=== PATIENT | male | born 1955 | race Caucasian/White ===

== ENCOUNTER 2016-10-30 18:19 | Emergency (ER) | payer MEDICARE, MEDICAID ==
[2016-10-30 18:43] VITALS: BP 121/61
[2016-10-30] MEDS ORDERED: oxyCODONE/Acetamin 5/325 MG* TAB PO ONE (19:11)
--- NOTE | 2016-10-30 20:17 | RAD ---
INDICATION: Atraumatic RIGHT lower extremity pain. COMPARISON: No relevant prior exams available on the [facility] PACS for comparison. TECHNIQUE: Landaverde scale, color Doppler, and spectral analysis of the deep veins of the RIGHT lower extremity. Vessel compression, phasicity, and augmentation assessed. REPORT: The RIGHT common femoral, great saphenous, profunda femoral, femoral, popliteal, peroneal, and posterior tibial veins are patent. Patency of the LEFT common femoral vein documented. IMPRESSION: No evidence for RIGHT lower extremity deep venous thrombosis.
[2016-10-30 20:34] LABS: Hematocrit 45 % (42-52); Mean Corpuscular HGB Conc 33 g/dl (31-36); Mean Corpuscular Hemoglobin 31 pg (27-31); Mean Corpuscular Volume 93 fL (80-94); Mean Platelet Volume 10 um3 (7.4-10.4); Red Blood Count 4.81 10^6/ul (4.0-5.4); Red Cell Distribution Width 16 % (10.5-15); White Blood Count 10.6 10^3/ul (3.5-10.8)
[2016-10-30 20:51] LABS: BUN/Creatinine Ratio 29.9 (8-20); Calcium 9.1 mg/dL (8.6-10.3); EGFR African American 155.6 (>60); Potassium 3.8 mmol/L (3.5-5.0)
--- NOTE | 2016-11-04 12:03 | ED ---
Poncho Richards Alfonso, scribed for Matthew Light MD on 10/30/16 at 1910 . Lower Extremity - HPI Summary HPI Summary: This patient is a 61 year old M presenting to [facility] with a chief complaint of RLE pain since 5 days ago. The patient rates the pain 8/10 in severity. Symptoms aggravated by standing. Symptoms alleviated by nothing. Patient denies hip pain, buttock pain, urinary symptoms, and bowel symptoms. He denies any falls. PMHx includes chronic back pain and prostate cancer. - History of Current Complaint Chief Complaint: EDExtremityLower Stated Complaint: RT LEG PAIN Time Seen by Provider: 10/30/16 19:00 Hx Obtained From: Patient Onset of Pain: Prior to Arrival Onset/Duration: Still Present - 5 Severity Initially: Severe Severity Currently: Severe Pain Intensity: 8 Pain Scale Used: 0-10 Numeric Timing: Constant Location: Is Discrete @ - RLE Associated Signs And Symptoms: Positive: Other - denies hip pain, buttock pain, urinary symptoms, and bowel symptoms Aggravating Factor(s): Standing Alleviating Factor(s): Nothing - Allergies/Home Medications Allergies/Adverse Reactions: Allergies Allergy/AdvReac Type Severity Reaction Status Date / Time Azithromycin Allergy Severe throat Verified 03/25/15 08:27 closes Erythromycin Allergy Severe HIVES & Verified 03/25/15 08:27 PVCs Penicillins Allergy Severe THROAT Verified 03/25/15 08:27 STARTS TO CLOSE PMH/Surg Hx/FS Hx/Imm Hx Endocrine/Hematology History: Denies: Hx Diabetes Cardiovascular History: Reports: Hx Hypertension - ON MEDICATION FOR, Other Cardiovascular Problems/Disorders - IN THE PAST- STATES HAD PVC'S-PT THINKS RELATED TO AZITHROMYCIN Denies: Hx Congestive Heart Failure, Hx Pacemaker/ICD History: Reports: Other Problems/Disorders - possible abcess right scrotum prostrate ca Denies: Hx Renal Disease Musculoskeletal History: Reports: Hx Arthritis, Hx Back Problems, Other Musculoskeletal History - CHRONIC BACK PAIN Sensory History: Reports: Hx Contacts or Glasses - READING GLASSES Denies: Hx Hearing Aid Opthamlomology History: Reports: Hx Contacts or Glasses - READING GLASSES Neurological History: Reports: Hx Nerve Disease - NERVE PROBLEM IN LEGS, Other Neuro Impairments/Disorders - HX OF EXTREME CLOSTERPHOBIA Psychiatric History: Reports: Hx Anxiety - ROUTINE AND PRN MEDICATON FOR-PANIC AND ANXIETY ATTACKS ONCE SHIRA WHILE, Hx Depression, Hx Panic Disorder - Cancer History Cancer Type, Location and Year: prostate Hx Radiation Therapy: Yes - Surgical History Surgery Procedure, Year, and Place: DEBRIDEMENT OF TOE- Lt GREAT TOE - SOME BONE REMOVED-2009 [facility] [place]. CARDIAC CATH X2- NO STENTS [facility] [place]. COLONOSCOPY; Neck Surgery 09/20/[address] [facility]. Hx Anesthesia Reactions: No Infectious Disease History: No Infectious Disease History: Denies: Traveled Outside the [place] in Last 30 Days - Family History Known Family History: Positive: Cardiac Disease - Social History Alcohol Use: None Alcohol Amount: pt states he drank last night Substance Use Type: Reports: None, Prescribed Smoking Status (MU): Former Smoker Type: Cigarettes Amount Used/How Often: 1 PPD X 25 YEARS Have You Smoked in the Last Year: No Review of Systems Negative: Fever, Chills Negative: Erythema Negative: Sore Throat Negative: Chest Pain Negative: Shortness Of Breath, Cough Positive: Other - Negative bowel symptoms. Negative: Abdominal Pain, Diarrhea, Nausea Positive: no symptoms reported. Negative: dysuria, hematuria Positive: Other - RLE pain; negative hip pain, buttock pain Negative: Rash Neurological: Other - Negative dizziness All Other Systems Reviewed And Are Negative: Yes Physical Exam Triage Information Reviewed: Yes Vital Signs On Initial Exam: Initial Vitals Temp Pulse Resp BP Pulse Ox 98.2 F 50 16 121/61 96 10/30/16 18:37 10/30/16 18:37 10/30/16 18:37 10/30/16 18:37 10/30/16 18:37 Vital Signs Reviewed: Yes Appearance: Positive: Well-Appearing, No Pain Distress, Well-Nourished Skin: Positive: Warm, Dry Head/Face: Positive: Normal Head/Face Inspection Eyes: Positive: Conjunctiva Clear ENT: Positive: Normal ENT inspection Neck: Positive: Other: - Musculoskeletal ROM normal neck. (-) JVD, (-) Stridor, (-) Tracheal deviation Lymph: (-) Cervical adenopathy Respiratory/Lung Sounds: Positive: Other - Effort normal. (-) Respiratory distress, (-) Wheezes, (-) Rales Cardiovascular: Positive: Other - Rhythm regular, rate normal, Heart sounds normal; Intact distal pulses; The pedal pulses are 2+ and symmetric. Radial pulses are 2+ and symmetric. (-) Murmur Abdomen Description: Positive: Other: - Soft, (-) Tenderness, (-) Distension, (- ) Guarding, (-) Rebound Musculoskeletal: Positive: Other - Hyperalgesia. Tender to light touch all the way up and down entire right leg. Straight leg raise positive. No significant swelling.. Negative: Edema Left, Edema Right Neurological: Positive: Alert, Oriented to Person Place, Time Psychiatric: Positive: Affect/Mood Appropriate Diagnostics - Vital Signs Vital Signs Temp Pulse Resp BP Pulse Ox 10/30/16 18:37 98.2 F 50 16 121/61 96 - Laboratory Result Diagrams: 10/30/16 20:20 10/30/16 20:20 Lab Statement: Any lab studies that have been ordered have been reviewed, and results considered in the medical decision making process. - Additional Comments Diagnostic Additional Comments: Venous Doppler study reveals No evidence for RIGHT lower extremity deep venous thrombosis. ED physician has reviewed this radiology report and agrees. Re-Evaluation - Re-Evaluation First Eval Re-Evaluation Time: 22:24 Change: Improved Comment: He reports good relief of his pain. He ambulated well. Lower Extremity Course/Dx - Course Assessment/Plan: This patient is a 61 year old M presenting to [facility] with a chief complaint of RLE pain since 5 days ago. The patient rates the pain 8/10 in severity. Symptoms aggravated by standing. Symptoms alleviated by nothing. Patient denies hip pain, buttock pain, urinary symptoms, and bowel symptoms. He denies any falls. PMHx includes chronic back pain and prostate cancer. Venous Doppler study reveals No evidence for RIGHT lower extremity deep venous thrombosis. ED physician has reviewed this radiology report and agrees. Patient will be discharged with prescriptions follow up from PCP. The patient is agreeable with this plan. - Diagnoses Provider Diagnoses: Sciatica, Chronic back pain Discharge - Discharge Plan Condition: Stable Disposition: HOME Prescriptions: Naproxen TAB* [Naprosyn 250 mg TAB*] 500 mg PO Q8H PRN #15 tab PRN Reason: Pain - Moderate To Severe oxyCODONE/Acetamin 5/325 MG* [Percocet 5/325 TAB*] 1 tab PO Q6H PRN #12 tab MDD 4 PRN Reason: Pain - Moderate To Severe predniSONE TAB* [Deltasone TAB*] 50 mg PO DAILY #5 tab Patient Education Materials: Sciatica (ED) Referrals: Deanne Babb MD [Primary Care Provider] - 3 Days Additional Instructions: RETURN TO THE EMERGENCY DEPARTMENT FOR CHANGING OR WORSENING SYMPTOMS The documentation as recorded by the Poncho morrow Alfonso accurately reflects the service I personally performed and the decisions made by Nadege carter Jerry, MD.
== END 2016-10-30 23:23 | disposition home or self-care (01) ==
LOC: ED 18:19
DX: M54.30 Sciatica, unspecified side (principal); M54.9 Dorsalgia, unspecified; M79.604 Pain in right leg; Z85.46 Personal history of malignant neoplasm of prostate; Z86.79 Personal history of other diseases of the circulatory system; Z87.891 Personal history of nicotine dependence
CPT/HCPCS: 36415; 80048; 85027; 85610; 85730; 99282; A9270-GY

== ENCOUNTER 2017-01-21 12:16 | Emergency (ER) | payer MEDICARE, MEDICAID ==
[2017-01-21] MEDS ORDERED: NS 0.9% 1000 ML* 1,000 ML IV ONE (13:28)
[2017-01-21] MEDS ORDERED: Tetan/Diph/Pertus SYR(Tdap)* 0.5 ML SYR(BOOSTRIX) use SYR IM ONE (13:28)
[2017-01-21 13:47] LABS: Hematocrit 43 % (42-52); Hemoglobin 14.5 g/dl (14.0-18.0); Mean Corpuscular HGB Conc 34 g/dl (31-36); Mean Corpuscular Hemoglobin 31 pg (27-31); Mean Corpuscular Volume 93 fL (80-94); Mean Platelet Volume 9 um3 (7.4-10.4); Red Blood Count 4.64 10^6/ul (4.0-5.4); Red Cell Distribution Width 15 % (10.5-15); White Blood Count 14.2 10^3/ul (3.5-10.8)
[2017-01-21 14:02] LABS: ALT 12 U/L (7-52); AST 15 U/L (13-39); Albumin 3.6 g/dL (3.2-5.2); Alkaline Phosphatase 90 U/L (34-104); Anion Gap 5 mmol/L (2-11); BUN/Creatinine Ratio 35.6 (8-20); Blood Urea Nitrogen 26 mg/dL (6-24); CO2 Carbon Dioxide 28 mmol/L (22-32); Calcium 8.8 mg/dL (8.6-10.3); Chloride 103 mmol/L (101-111); Creatine Kinase 76 U/L (10-223); EGFR African American 140.5 (>60); EGFR Non-African American 109.2 (>60); Globulin 4.1 g/dL (2-4); Glucose 100 mg/dL (70-100); Magnesium 2.3 mg/dL (1.9-2.7); Potassium 4.1 mmol/L (3.5-5.0); Sodium 136 mmol/L (133-145); Total Protein 7.7 g/dL (6.4-8.9)
[2017-01-21 14:03] LABS: Troponin I 0.01 ng/mL (<0.04)
[2017-01-21] MEDS ORDERED: HYDROmorphone INJ* 2 MG/ML CARPUJECT SYRINGE IV SLOW PU ONE (14:04)
--- NOTE | 2017-01-21 14:07 | RAD ---
Indication: Headaches after fall. CT of the brain was performed without IV contrast. Ventricular structures are midline. No midline shift is noted. The extra-axial spaces are unremarkable. There is no evidence of intracranial mass or hemorrhage. No other high or low density lesions are identified. When compared to previous exam of February 22, 2015 there is no significant change. Bony calvaria, mastoid air cells and paranasal sinuses are unremarkable. IMPRESSION: There is no evidence of intracranial mass or hemorrhage.
--- NOTE | 2017-01-21 14:16 | RAD ---
INDICATION: Head and neck pain post fall. Previous neck surgery in 2014. COMPARISON: No relevant prior exams available on the [facility] PACS for comparison. TECHNIQUE: Multidetector CT images foramen magnum to lung apices without contrast. Multiplanar reformation. REPORT: Negative for facet subluxation at any level. Negative for cervical vertebral body or posterior element fracture. Negative for paravertebral hematoma. Postsurgical change of C3-C7 decompressive laminectomies. Multilevel degenerative spondylosis and facet joint osteoarthritis. Disc space narrowing is most prominent at C5-C6 and C6-C7 where it is moderately severe without change. Ankylosis at the RIGHT C2-C3 facet joints without change. At C2-C3 facet joint osteoarthritis results in slight bilateral foraminal stenosis with interval progression. At C3-C4 uncinate process spurring and facet joint osteoarthritis results in moderate RIGHT and moderately severe LEFT foraminal stenosis without significant change. At C4-C5 there is mild RIGHT and moderate LEFT foraminal stenosis without significant change. At C5-C6 there is moderate bilateral foraminal stenosis with mild progression. Negative for foraminal stenosis at C6-C7 or C7-T1. IMPRESSION: No traumatic injury of the cervical spine evident.
[2017-01-21 14:23] LABS: Alcohol < 10 mg/dL (<10)
[2017-01-21 14:38] LABS: TSH (Thyroid Stimulating Horm) 1.52 mcIU/mL (0.34-5.60)
--- NOTE | 2017-01-21 14:48 | RAD ---
Indication: Chest pain, fall and dizziness. Single frontal view of the chest performed at 1424 hours was reviewed. Comparison is made with previous exam dated April 11, 2013. No mediastinal shift is noted. Elevated right hemidiaphragm is noted. Lung bowers are clear. IMPRESSION: NO ACTIVE CARDIOPULMONARY DISEASE IS NOTED.
[2017-01-21 15:59] LABS: Urine Bilirubin Negative (Negative); Urine Glucose Negative (Negative); Urine Nitrite Negative (Negative)
[2017-01-21 16:06] VITALS: BP 121/77
--- NOTE | 2017-01-21 22:24 | ED ---
Catrachita Richards Nilda, scribed for Marilyn Joseph MD on 01/21/17 at 1336 . Adult Trauma - HPI Summary HPI Summary: This patient is a 62 year old M presenting to [facility] accompanied by female friend , Sayda, who drove pt to ED, with a chief complaint of dizziness and lightheadedness s/p fall since earlier today. Pt states his walker didnt have brakes on when he stood up, causing him to fall forward and hit his head on a dresser. 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 Pt notes that he was not dizzy before standing to use his walker. Patient reports LOC (per triage note), facial abrasions, left ear laceration, neck pain, and general chronic pain, but denies epistaxis, chest pain or SOB. The patient rates the pain 8/10 in severity. Pt states he did not take anything for pain SIDE STITCHER. He notes that he is allergic to penicillin (throat closes up). PMHx includes prostate cancer, sciatica on right side, and degenerative spondylosis. PSHx Spinal cord surgery with scar on posterior neck from cervical spine to top of thoracic spine. Pt asks for dilaudid by name for pain upon presentation. States he has taken opiates in the past, for years. - History of Current Complaint Chief Complaint: EDGeneral Stated Complaint: FALL,VARIOUS INJURIES,DIZZINESS Time Seen by Provider: 01/21/17 13:05 Hx Obtained From: Patient, Family/Epic Professional - friend (Sayda), Medical Records - triage note Mechanism of Injury: Fall Ambulatory at the Scene: No Loss of Consciousness: brief (seconds) Onset/Duration: Started Minutes Ago, Traumatic, Still Present Onset of Pain: Immediate Onset Severity: Severe Current Severity: Severe Pain Intensity: 8 Pain Scale Used: 0-10 Numeric Location: Head, Extremities, Other - face, nose Character: Aching Aggravating Factor(s): Movement Alleviating Factor(s): Rest Associated Signs & Symptoms: Positive: Other: - reports dizziness, lightheadedness, LOC (per triage note), facial abrasions, left ear laceration, neck pain, and general chronic pain, but denies epistaxis - Allergy/Home Medications Allergies/Adverse Reactions: Allergies Allergy/AdvReac Type Severity Reaction Status Date / Time Azithromycin Allergy Severe throat Verified 03/25/15 08:27 closes Erythromycin Allergy Severe HIVES & Verified 03/25/15 08:27 PVCs Penicillins Allergy Severe THROAT Verified 03/25/15 08:27 STARTS TO CLOSE Home Medications: Home Medications Atenolol TAB* [Tenormin TAB* 50 MG] 100 mg PO DAILY 01/21/17 [History Confirmed 01/21/17] Baclofen TAB* [Lioresal TAB*] 10 mg PO TID 01/21/17 [History Confirmed 01/21/17] Escitalopram (NF) [Lexapro 20 mg (NF)] 20 mg PO DAILY 01/21/17 [History Confirmed 01/21/17] Gabapentin CAP(*) [Neurontin 400 mg CAP(*)] 1,200 mg PO TID 01/21/17 [History Confirmed 01/21/17] PMH/Surg Hx/FS Hx/Imm Hx Previously Healthy: No Endocrine/Hematology History: Denies: Hx Diabetes Cardiovascular History: Reports: Hx Hypertension Denies: Hx Congestive Heart Failure, Hx Pacemaker/ICD History: Reports: Other Problems/Disorders - prostate CA Denies: Hx Renal Disease Musculoskeletal History: Reports: Hx Arthritis, Hx Back Problems, Other Musculoskeletal History - CHRONIC BACK PAIN, degenerative spondylosis, sciatica right side; neck surg Denies: Hx Rheumatoid Arthritis, Hx Osteoporosis Sensory History: Reports: Hx Contacts or Glasses - READING GLASSES Denies: Hx Hearing Aid Opthamlomology History: Reports: Hx Contacts or Glasses - READING GLASSES Neurological History: Reports: Hx Nerve Disease - neuropathy bilat legs, Other Neuro Impairments/Disorders - right hemiplegia Psychiatric History: Reports: Hx Anxiety - ROUTINE AND PRN MEDICATON FOR-PANIC AND ANXIETY ATTACKS ONCE IN A WHILE, Hx Depression, Hx Panic Disorder - Cancer History Cancer Type, Location and Year: prostate Hx Radiation Therapy: Yes - Surgical History Surgery Procedure, Year, and Place: DEBRIDEMENT OF TOE- Lt GREAT TOE - SOME BONE REMOVED-2009 [facility]. CARDIAC CATH X2- NO STENTS [facility]. COLONOSCOPY; Neck Surgery 09/20/[address] Bernstein at [facility]. Hx Anesthesia Reactions: No - Immunization History Date of Tetanus Vaccine: unknown Immunizations Up to Date: Unable to Obtain/Confirm Infectious Disease History: No Infectious Disease History: Denies: Traveled Outside the [place] in Last 30 Days - Family History Known Family History: Positive: Cardiac Disease - father, Diabetes - father, Other - dad- cancer - Social History Alcohol Use: None Substance Use Type: Reports: Prescribed - opiates Smoking Status (MU): Former Smoker Type: Cigarettes Amount Used/How Often: 1 PPD X 25 YEARS Have You Smoked in the Last Year: No Review of Systems Constitutional: Negative Eyes: Negative Positive: Other - left pinna laceration. Negative: Epistaxis Cardiovascular: Negative Respiratory: Negative Gastrointestinal: Negative Positive: Other - chronic back pain, neck pain Positive: Other - facial abrasions Neurological: Other - LOC, right hemiparesis, dizziness, and lightheadedness. Psychological: Normal All Other Systems Reviewed And Are Negative: Yes Physical Exam Triage Information Reviewed: Yes Vital Signs On Initial Exam: Initial Vitals Temp Pulse Resp BP Pulse Ox 98.3 F 60 20 115/67 96 01/21/17 12:21 01/21/17 12:21 01/21/17 12:21 01/21/17 12:21 01/21/17 12:21 Vital Signs Reviewed: Yes Appearance: Positive: Well-Appearing, Well-Nourished, Pain Distress - moderate, pt rated 8/10 in severity Skin: Positive: Warm, Skin Color Reflects Adequate Perfusion, Other - facial abrasions left frontal with hematoma, nasal, chin, laceartion to left pinna, superficail: cleansed, no sutures needed. Head/Face: Positive: Other - Hematoma and abrasion above left brow Eyes: Positive: EOMI, ASHLEY, Conjunctiva Clear ENT: Positive: Pharynx normal, TMs normal, Other - Superficial laceration of left pinna (cleaned by Dr. Joseph, no need for sutures), Abrasion of nose, Both nares clear, no bleeding site inside nares; nose without deformity Dental: Positive: Other - Edentulous Neck: Positive: Supple, No Lymphadenopathy, Tenderness @ - post spines Respiratory/Lung Sounds: Positive: Clear to Auscultation, Breath Sounds Present , Other - no respiratory distress Cardiovascular: Positive: RRR, Other - brisk capillary refill, pulses normal, S1 , S2. Negative: Murmur Abdomen Description: Positive: Nontender, No Organomegaly, Soft. Negative: Bruit, CVA Tenderness (R), CVA Tenderness (L), Distended, Guarding, Hernia @, Hepatomegaly, McBurney's Point Tenderness, Peritoneal Signs, Pulsatile Mass, Splenomegaly Musculoskeletal: Positive: Other - Right hemiparesis. Permanent nerve damage on right side. pt can't lift right arm and is weak at RLE.4/5 FROM of LLE. Abrasion on both knees. Spinal cord surgical site with scar on posterior neck from cervical spine to top of thoracic spine. Neurological: Positive: Alert, Oriented to Person Place, Time, Unable to Assess Gait, Facial Symmetry, Speech Normal, Other - Permanent nerve damage on right side per pt, +right hemiplegia Psychiatric: Positive: Normal - [place] Coma Scale Best Eye Response: 4 - Spontaneous Best Motor Response: 6 - Obeys Commands Best Verbal Response: 5 - Oriented [place] Coma Scale Comments: 15 Diagnostics - Vital Signs Vital Signs Temp Pulse Resp BP Pulse Ox 01/21/17 12:21 98.3 F 60 20 115/67 96 - Laboratory Lab Results: Lab Results 01/21/17 01/21/17 01/21/17 Range/Units 13:35 13:35 13:35 WBC 14.2 H (3.5-10.8) 10^3/ul RBC 4.64 (4.0-5.4) 10^6/ul Hgb 14.5 (14.0-18.0) g/dl Hct 43 (42-52) % MCV 93 (80-94) fL MCH 31 (27-31) pg MCHC 34 (31-36) g/dl RDW 15 (10.5-15) % Plt Count 237 (150-450) 10^3/ul MPV 9 (7.4-10.4) um3 Neut % (Auto) 73.1 (38-83) % Lymph % (Auto) 17.1 L (25-47) % Gregg % (Auto) 7.8 (1-9) % Eos % (Auto) 1.6 (0-6) % Baso % (Auto) 0.4 (0-2) % Absolute Neuts (auto) 10.4 H (1.5-7.7) 10^3/ul Absolute Lymphs (auto) 2.4 (1.0-4.8) 10^3/ul Absolute Monos (auto) 1.1 H (0-0.8) 10^3/ul Absolute Eos (auto) 0.2 (0-0.6) 10^3/ul Absolute Basos (auto) 0.1 (0-0.2) 10^3/ul Absolute Nucleated RBC 0 10^3/ul Nucleated RBC % 0 INR (Anticoag Therapy) (0.89-1.11) Sodium 136 (133-145) mmol/L Potassium 4.1 (3.5-5.0) mmol/L Chloride 103 (101-111) mmol/L Carbon Dioxide 28 (22-32) mmol/L Anion Gap 5 (2-11) mmol/L BUN 26 H (6-24) mg/dL Creatinine 0.73 (0.67-1.17) mg/dL Est GFR ( Amer) 140.5 (>60) Est GFR (Non-Af Amer) 109.2 (>60) BUN/Creatinine Ratio 35.6 H (8-20) Glucose 100 (70-100) mg/dL Lactic Acid 1.2 (0.5-2.0) mmol/L Calcium 8.8 (8.6-10.3) mg/dL Magnesium 2.3 (1.9-2.7) mg/dL Total Bilirubin 0.30 (0.2-1.0) mg/dL AST 15 (13-39) U/L ALT 12 (7-52) U/L Alkaline Phosphatase 90 (34-104) U/L Total Creatine Kinase 76 (10-223) U/L Troponin I 0.01 (<0.04) ng/mL B-Natriuretic Peptide ( - 100) pg/mL Total Protein 7.7 (6.4-8.9) g/dL Albumin 3.6 (3.2-5.2) g/dL Globulin 4.1 H (2-4) g/dL Albumin/Globulin Ratio 0.9 L (1-3) TSH 1.52 (0.34-5.60) mcIU/mL Urine Color Urine Appearance Urine pH (5-9) Ur Specific [place] (1.010-1.030) Urine Protein (Negative) Urine Ketones (Negative) Urine Blood (Negative) Urine Nitrate (Negative) Urine Bilirubin (Negative) Urine Urobilinogen (Negative) Ur Leukocyte Esterase (Negative) Urine Glucose (Negative) Serum Alcohol < 10 (<10) mg/dL 01/21/17 01/21/17 01/21/17 Range/Units 13:35 13:35 15:04 WBC (3.5-10.8) 10^3/ul RBC (4.0-5.4) 10^6/ul Hgb (14.0-18.0) g/dl Hct (42-52) % MCV (80-94) fL MCH (27-31) pg MCHC (31-36) g/dl RDW (10.5-15) % Plt Count (150-450) 10^3/ul MPV (7.4-10.4) um3 Neut % (Auto) (38-83) % Lymph % (Auto) (25-47) % Gregg % (Auto) (1-9) % Eos % (Auto) (0-6) % Baso % (Auto) (0-2) % Absolute Neuts (auto) (1.5-7.7) 10^3/ul Absolute Lymphs (auto) (1.0-4.8) 10^3/ul Absolute Monos (auto) (0-0.8) 10^3/ul Absolute Eos (auto) (0-0.6) 10^3/ul Absolute Basos (auto) (0-0.2) 10^3/ul Absolute Nucleated RBC 10^3/ul Nucleated RBC % INR (Anticoag Therapy) 0.98 (0.89-1.11) Sodium (133-145) mmol/L Potassium (3.5-5.0) mmol/L Chloride (101-111) mmol/L Carbon Dioxide (22-32) mmol/L Anion Gap (2-11) mmol/L BUN (6-24) mg/dL Creatinine (0.67-1.17) mg/dL Est GFR ( Amer) (>60) Est GFR (Non-Af Amer) (>60) BUN/Creatinine Ratio (8-20) Glucose (70-100) mg/dL Lactic Acid (0.5-2.0) mmol/L Calcium (8.6-10.3) mg/dL Magnesium (1.9-2.7) mg/dL Total Bilirubin (0.2-1.0) mg/dL AST (13-39) U/L ALT (7-52) U/L Alkaline Phosphatase (34-104) U/L Total Creatine Kinase (10-223) U/L Troponin I (<0.04) ng/mL B-Natriuretic Peptide 79 ( - 100) pg/mL Total Protein (6.4-8.9) g/dL Albumin (3.2-5.2) g/dL Globulin (2-4) g/dL Albumin/Globulin Ratio (1-3) TSH (0.34-5.60) mcIU/mL Urine Color Yellow Urine Appearance Clear Urine pH 5.0 (5-9) Ur Specific [place] 1.024 (1.010-1.030) Urine Protein Negative (Negative) Urine Ketones Negative (Negative) Urine Blood Negative (Negative) Urine Nitrate Negative (Negative) Urine Bilirubin Negative (Negative) Urine Urobilinogen Negative (Negative) Ur Leukocyte Esterase Negative (Negative) Urine Glucose Negative (Negative) Serum Alcohol (<10) mg/dL Result Diagrams: 01/21/17 13:35 01/21/17 13:35 Lab Statement: Any lab studies that have been ordered have been reviewed, and results considered in the medical decision making process. - Radiology CXR Radiology Interpretation Completed By: Radiologist - CXR reveals no active cardiopulmonary disease noted. ED physician has reviewed this radiology report and agrees. - CT C-Spine CT Interpretation Completed By: Radiologist - no traumatic injury of the c- spine evident. ED Physician has reviewed this report and agrees. Brain CT Interpretation Completed By: Radiologist - reveals no evidence of intracranial mass or hemorrhage. ED Physician reviewed this report and agrees. - EKG 1356 Cardiac Rate: Bradycardia EKG Rhythm: Sinus Bradycardia - 57 bpm EKG Interpretation: nl TN, QRS prolongued, LBBB, nl QTc, neg axis (-30), no acute changes EKG Comparison: Other - Compared to 02/22/15 EKG, pt now has LBBB. Re-Evaluation - Re-Evaluation First Eval Re-Evaluation Time: 16:20 Change: Improved Comment: Pt is not dizzy and feels safe to go home. Requests a few pain medications to take home as a prescription. Istop consulted Adult Trauma Course/Dx - Course Assessment/Plan: This patient is a 62 year old M with a chief complaint of dizziness and lightheadedness s/p fall since earlier today. Pt states his walker didnt have brakes on when he stood up, causing him to fall forward and hit his head on a dresser. Medications and allergies reviewed this visit. Tetanus status updated with Tdap. An EKG reveals sinus iris, 57 bpm, nl TN, QRS prolongued, LBBB, nl QTc, neg axis (-30), no acute changes. Compared with prior EKG on 02/22/15, pt now has LBBB. CXR, per radiologist, reveals no active cardiopulmonary disease noted. CT C-spine, per radiologist, reveals no traumatic injury of the c-spine evident. CT brain, per radiologist, reveals no evidence of intracranial mass or hemorrhage. ED Physician has reviewed these radiology reports and agrees. iSTOP checked. Last oxycodone-acetaminophen 5- 325 mg tab dispensed 11/01/[address] Light for 12 tabs, (3-day supply). Pt has long hx of prescribed opiates. Pt is stable and will be D/C with Dx of head injury, vertigo, chronic pain, and mechanical fall, and a prescription for percocet. - Diagnoses Provider Diagnoses: Vertigo, Head injury, Chronic pain, mechanical fall, Tdap vaccine administered , Abrasion of face Discharge - Discharge Plan Condition: Stable Disposition: HOME Prescriptions: oxyCODONE/Acetamin 5/325 MG* [Percocet 5/325 TAB*] 1 tab PO Q6H PRN #12 tab MDD 4 PRN Reason: Pain Patient Education Materials: Vertigo (ED), Chronic Pain (ED), Head Injury (ED) Referrals: Deanne Babb MD [Primary Care Provider] - 2 Days Additional Instructions: RETURN TO THE EMERGENCY DEPARTMENT FOR CHANGING OR WORSENING SYMPTOMS. The documentation as recorded by the Catrachita morrow Nilda accurately reflects the service I personally performed and the decisions made by , Marilyn Joseph MD.
== END 2017-01-21 16:57 | disposition home or self-care (01) ==
LOC: ED 12:16
DX: S09.90XA Unspecified injury of head, initial encounter (principal); S00.81XA Abrasion of other part of head, initial encounter; R42 Dizziness and giddiness; R55 Syncope and collapse; M54.2 Cervicalgia; F17.210 Nicotine dependence, cigarettes, uncomplicated; W19.XXXA Unspecified fall, initial encounter; Y93.9 Activity, unspecified; Y92.9 Unspecified place or not applicable
CPT/HCPCS: 36415; 70450; 71010; 72125; 80053; 80320; 81003; 82550; 83605; 83735; 83880; 84443; 84484; 85025; 85610; 90471; 90715; 93005; 96374; 99283; G0480; J1170

== ENCOUNTER 2018-01-28 18:17 | Emergency (ER) | payer MEDICARE, MEDICAID ==
[2018-01-28 19:43] LABS: ABS Basophils 0.1 10^3/ul (0-0.2); ABS Eosinophils 0 10^3/ul (0-0.6); ABS Lymphocytes 1.2 10^3/ul (1.0-4.8); ABS Monocytes 0.6 10^3/ul (0-0.8); ABS Neutrophils 9.1 10^3/ul (1.5-7.7); ABS Nucleated RBC 0 10^3/ul; Eosinophil % 0.4 %; Hematocrit 47 % (42-52); Hemoglobin 15.3 g/dl (14.0-18.0); Lymphocyte % 11.1 %; Mean Corpuscular HGB Conc 33 g/dl (31-36); Mean Corpuscular Hemoglobin 31 pg (27-31); Mean Corpuscular Volume 95 fL (80-94); Mean Platelet Volume 8.8 fL (7.4-10.4); Nucleated Red Blood Cells % 0; Platelet Count 236 10^3/ul (150-450); Red Cell Distribution Width 15 % (10.5-15); White Blood Count 11.1 10^3/ul (3.5-10.8)
[2018-01-28 19:55] LABS: EGFR Non-African American 110.6 (>60)
[2018-01-28] MEDS ORDERED: Albuterol/Ipratropium NEB.SOL* Albuterol 2.5 MG/Ipratropium 0.5 MG 3 ML INH ONE (20:07)
[2018-01-28 22:52] LABS: Urine Appearance Clear; Urine Blood Negative (Negative); Urine Color Yellow; Urine Ketones Negative (Negative); Urine Protein Negative (Negative); Urine Specific Gravity 1.018 (1.010-1.030); Urine Urobilinogen Negative (Negative)
[2018-01-28] MEDS ORDERED: methylPREDNISolone 125 MG* 2 ML VIAL IV ONE (22:58)
[2018-01-28] MEDS ORDERED: Albuterol HFA INHALER* 8 gm MDI INH PRN (23:23)
[2018-01-28] MEDS ORDERED: Levofloxacin TAB* 250 MG PO ONE (23:24)
--- NOTE | 2018-01-28 23:26 | ED ---
Respiratory - HPI Summary HPI Summary: Patient complains of SOB 2 days, worse this afternoon, cough 1 week. Denies fever, sore throat, HOLCOMB, neck stiffness, CP, N/V/D, abdominal pain, change in urine, change in BM. Medical history is chronic back pain, emphysema. No home O2. No inhaler. Smoker for 25 years, quit 10 years ago. Denies prior cardiac history. - History of Current Complaint Chief Complaint: EDShortnessOfBreath Stated Complaint: SOB Time Seen by Provider: 01/28/18 18:59 Hx Obtained From: Patient Onset/Duration: Gradual Onset Timing: Intermittent Episodes Lasting: Initial Severity: Mild Current Severity: Mild Pain Intensity: 3 Sputum Amount: None Sputum Color: Clear Aggravating Factor(s): Nothing Alleviating Factor(s): Nothing Associated Signs and Symptoms: Dyspnea - Allergy/Home Medications Allergies/Adverse Reactions: Allergies Allergy/AdvReac Type Severity Reaction Status Date / Time MS Azithromycin Allergy Severe throat Verified 03/25/15 08:27 [Azithromycin] closes MS Erythromycin Allergy Severe HIVES & Verified 03/25/15 08:27 [Erythromycin] PVCs MS Penicillins [Penicillins] Allergy Severe THROAT Verified 03/25/15 08:27 STARTS TO CLOSE PMH/Surg Hx/FS Hx/Imm Hx Endocrine/Hematology History: Denies: Hx Diabetes Cardiovascular History: Reports: Hx Hypertension, Other Cardiovascular Problems/ Disorders Denies: Hx Congestive Heart Failure, Hx Pacemaker/ICD History: Reports: Other Problems/Disorders - prostate CA Denies: Hx Renal Disease Musculoskeletal History: Reports: Hx Arthritis, Hx Back Problems, Other Musculoskeletal History - CHRONIC BACK PAIN, degenerative spondylosis, sciatica right side; neck surg Denies: Hx Rheumatoid Arthritis, Hx Osteoporosis Sensory History: Reports: Hx Contacts or Glasses - READING GLASSES Denies: Hx Hearing Aid Opthamlomology History: Reports: Hx Contacts or Glasses - READING GLASSES Neurological History: Reports: Hx Nerve Disease - neuropathy bilat legs, Other Neuro Impairments/Disorders - right hemiplegia Psychiatric History: Reports: Hx Anxiety - ROUTINE AND PRN MEDICATON FOR-PANIC AND ANXIETY ATTACKS ONCE IN A WHILE, Hx Depression, Hx Panic Disorder - Cancer History Cancer Type, Location and Year: prostate Hx Radiation Therapy: Yes - Surgical History Surgery Procedure, Year, and Place: DEBRIDEMENT OF TOE- Lt GREAT TOE - SOME BONE REMOVED-2009 [facility]. CARDIAC CATH X2- NO STENTS [facility]. COLONOSCOPY; Neck Surgery 09/[address] Bernstein at [facility]. Hx Anesthesia Reactions: No - Immunization History Date of Tetanus Vaccine: unknown Infectious Disease History: No Infectious Disease History: Denies: Traveled Outside the [place] in Last 30 Days - Family History Known Family History: Positive: Cardiac Disease - father, Diabetes - father, Other - dad- cancer - Social History Alcohol Use: None Alcohol Amount: pt states he drank last night Substance Use Type: Reports: Prescribed Smoking Status (MU): Former Smoker Type: Cigarettes Amount Used/How Often: 1 PPD X 25 YEARS Have You Smoked in the Last Year: No Review of Systems Constitutional: Negative Eyes: Negative ENT: Negative Positive: Shortness Of Breath, Cough Gastrointestinal: Negative Genitourinary: Negative Musculoskeletal: Negative Skin: Negative Neurological: Negative Psychological: Normal All Other Systems Reviewed And Are Negative: Yes Physical Exam - Summary Physical Exam Summary: Mild expiratory wheezing bilaterally. Physical exam otherwise unremarkable. Patient lying flat on bed with one pillow, no evidence of orthopnea. No peripheral edema. Triage Information Reviewed: Yes Vital Signs On Initial Exam: Initial Vitals Temp Pulse Resp BP Pulse Ox 98.3 F 74 25 143/66 99 01/28/18 18:21 01/28/18 18:21 01/28/18 18:21 01/28/18 18:21 01/28/18 18:21 Vital Signs Reviewed: Yes Appearance: Positive: Well-Appearing Skin: Positive: Warm Head/Face: Positive: Normal Head/Face Inspection Eyes: Positive: Normal ENT: Positive: Normal ENT inspection Neck: Positive: Supple Respiratory/Lung Sounds: Positive: Wheezes Cardiovascular: Positive: Normal Abdomen Description: Positive: Nontender Musculoskeletal: Positive: Normal Neurological: Positive: Normal Psychiatric: Positive: Normal AVPU Assessment: Alert - Luis Coma Scale Best Eye Response: 4 - Spontaneous Best Motor Response: 6 - Obeys Commands Best Verbal Response: 5 - Oriented Coma Scale Total: 15 Diagnostics - Vital Signs Vital Signs Temp Pulse Resp BP Pulse Ox 01/28/18 22:23 71 27 130/82 94 01/28/18 22:00 77 21 93 01/28/18 21:23 68 27 131/75 92 01/28/18 21:00 75 27 92 01/28/18 20:53 75 17 112/81 95 01/28/18 20:37 96 12/04/18 20:30 64 16 100 01/28/18 20:23 64 27 125/77 94 01/28/18 19:30 75 20 139/78 99 01/28/18 18:21 98.3 F 74 25 143/66 99 - Laboratory Lab Results: Lab Results 01/28/18 01/28/18 01/28/18 Range/Units 19:13 19:20 19:20 WBC 11.1 H (3.5-10.8) 10^3/ul RBC 4.90 (4.00-5.40) 10^6/ul Hgb 15.3 (14.0-18.0) g/dl Hct 47 (42-52) % MCV 95 H (80-94) fL MCH 31 (27-31) pg MCHC 33 (31-36) g/dl RDW 15 (10.5-15) % Plt Count 236 (150-450) 10^3/ul MPV 8.8 (7.4-10.4) fL Neut % (Auto) 82.1 % Lymph % (Auto) 11.1 % [place] % (Auto) 5.2 % Eos % (Auto) 0.4 % Baso % (Auto) 1.2 % Absolute Neuts (auto) 9.1 H (1.5-7.7) 10^3/ul Absolute Lymphs (auto) 1.2 (1.0-4.8) 10^3/ul Absolute Monos (auto) 0.6 (0-0.8) 10^3/ul Absolute Eos (auto) 0 (0-0.6) 10^3/ul Absolute Basos (auto) 0.1 (0-0.2) 10^3/ul Absolute Nucleated RBC 0 10^3/ul Nucleated RBC % 0 VBG pH (7.33-7.43) VBG pCO2 (41-51) mmHg VBG pO2 (35-45) mmHg VBG HCO3 (24-28) mmol/L VBG O2 Saturation (70-80) % VBG Base Excess (0-4) Sodium 137 (135-145) mmol/L Potassium 4.2 (3.5-5.0) mmol/L Chloride 104 (101-111) mmol/L Carbon Dioxide 26 (22-32) mmol/L Anion Gap 7 (2-11) mmol/L BUN 16 (6-24) mg/dL Creatinine 0.72 (0.67-1.17) mg/dL Est GFR ( Amer) 133.8 (>60) Est GFR (Non-Af Amer) 110.6 (>60) BUN/Creatinine Ratio 22.2 H (8-20) Glucose 130 H (70-100) mg/dL Lactic Acid (0.5-2.0) mmol/L Calcium 9.4 (8.6-10.3) mg/dL Total Bilirubin 0.40 (0.2-1.0) mg/dL AST 13 (13-39) U/L ALT 9 (7-52) U/L Alkaline Phosphatase 82 (34-104) U/L Troponin I 0.00 (<0.04) ng/mL C-Reactive Protein 10.36 H (<8.01) mg/L B-Natriuretic Peptide 109 H (<=100) pg/mL Total Protein 7.9 (6.4-8.9) g/dL Albumin 3.8 (3.2-5.2) g/dL Globulin 4.1 H (2-4) g/dL Albumin/Globulin Ratio 0.9 L (1-3) Urine Color Urine Appearance Urine pH (5-9) Ur Specific [place] (1.010-1.030) Urine Protein (Negative) Urine Ketones (Negative) Urine Blood (Negative) Urine Nitrate (Negative) Urine Bilirubin (Negative) Urine Urobilinogen (Negative) Ur Leukocyte Esterase (Negative) Urine Glucose (Negative) 01/28/18 01/28/18 01/28/18 Range/Units 19:20 19:20 21:52 WBC (3.5-10.8) 10^3/ul RBC (4.00-5.40) 10^6/ul Hgb (14.0-18.0) g/dl Hct (42-52) % MCV (80-94) fL MCH (27-31) pg MCHC (31-36) g/dl RDW (10.5-15) % Plt Count (150-450) 10^3/ul MPV (7.4-10.4) fL Neut % (Auto) % Lymph % (Auto) % [place] % (Auto) % Eos % (Auto) % Baso % (Auto) % Absolute Neuts (auto) (1.5-7.7) 10^3/ul Absolute Lymphs (auto) (1.0-4.8) 10^3/ul Absolute Monos (auto) (0-0.8) 10^3/ul Absolute Eos (auto) (0-0.6) 10^3/ul Absolute Basos (auto) (0-0.2) 10^3/ul Absolute Nucleated RBC 10^3/ul Nucleated RBC % VBG pH 7.48 H (7.33-7.43) VBG pCO2 37 L (41-51) mmHg VBG pO2 55 H (35-45) mmHg VBG HCO3 27.9 (24-28) mmol/L VBG O2 Saturation 91.8 H (70-80) % VBG Base Excess 4.1 H (0-4) Sodium (135-145) mmol/L Potassium (3.5-5.0) mmol/L Chloride (101-111) mmol/L Carbon Dioxide (22-32) mmol/L Anion Gap (2-11) mmol/L BUN (6-24) mg/dL Creatinine (0.67-1.17) mg/dL Est GFR ( Amer) (>60) Est GFR (Non-Af Amer) (>60) BUN/Creatinine Ratio (8-20) Glucose (70-100) mg/dL Lactic Acid 1.4 (0.5-2.0) mmol/L Calcium (8.6-10.3) mg/dL Total Bilirubin (0.2-1.0) mg/dL AST (13-39) U/L ALT (7-52) U/L Alkaline Phosphatase (34-104) U/L Troponin I (<0.04) ng/mL C-Reactive Protein (<8.01) mg/L B-Natriuretic Peptide 119 H (<=100) pg/mL Total Protein (6.4-8.9) g/dL Albumin (3.2-5.2) g/dL Globulin (2-4) g/dL Albumin/Globulin Ratio (1-3) Urine Color Urine Appearance Urine pH (5-9) Ur Specific [place] (1.010-1.030) Urine Protein (Negative) Urine Ketones (Negative) Urine Blood (Negative) Urine Nitrate (Negative) Urine Bilirubin (Negative) Urine Urobilinogen (Negative) Ur Leukocyte Esterase (Negative) Urine Glucose (Negative) 01/28/18 Range/Units 22:42 WBC (3.5-10.8) 10^3/ul RBC (4.00-5.40) 10^6/ul Hgb (14.0-18.0) g/dl Hct (42-52) % MCV (80-94) fL MCH (27-31) pg MCHC (31-36) g/dl RDW (10.5-15) % Plt Count (150-450) 10^3/ul MPV (7.4-10.4) fL Neut % (Auto) % Lymph % (Auto) % [place] % (Auto) % Eos % (Auto) % Baso % (Auto) % Absolute Neuts (auto) (1.5-7.7) 10^3/ul Absolute Lymphs (auto) (1.0-4.8) 10^3/ul Absolute Monos (auto) (0-0.8) 10^3/ul Absolute Eos (auto) (0-0.6) 10^3/ul Absolute Basos (auto) (0-0.2) 10^3/ul Absolute Nucleated RBC 10^3/ul Nucleated RBC % VBG pH (7.33-7.43) VBG pCO2 (41-51) mmHg VBG pO2 (35-45) mmHg VBG HCO3 (24-28) mmol/L VBG O2 Saturation (70-80) % VBG Base Excess (0-4) Sodium (135-145) mmol/L Potassium (3.5-5.0) mmol/L Chloride (101-111) mmol/L Carbon Dioxide (22-32) mmol/L Anion Gap (2-11) mmol/L BUN (6-24) mg/dL Creatinine (0.67-1.17) mg/dL Est GFR ( Amer) (>60) Est GFR (Non-Af Amer) (>60) BUN/Creatinine Ratio (8-20) Glucose (70-100) mg/dL Lactic Acid (0.5-2.0) mmol/L Calcium (8.6-10.3) mg/dL Total Bilirubin (0.2-1.0) mg/dL AST (13-39) U/L ALT (7-52) U/L Alkaline Phosphatase (34-104) U/L Troponin I (<0.04) ng/mL C-Reactive Protein (<8.01) mg/L B-Natriuretic Peptide (<=100) pg/mL Total Protein (6.4-8.9) g/dL Albumin (3.2-5.2) g/dL Globulin (2-4) g/dL Albumin/Globulin Ratio (1-3) Urine Color Yellow Urine Appearance Clear Urine pH 6.0 (5-9) Ur Specific [place] 1.018 (1.010-1.030) Urine Protein Negative (Negative) Urine Ketones Negative (Negative) Urine Blood Negative (Negative) Urine Nitrate Negative (Negative) Urine Bilirubin Negative (Negative) Urine Urobilinogen Negative (Negative) Ur Leukocyte Esterase Negative (Negative) Urine Glucose Negative (Negative) Result Diagrams: 01/28/18 19:20 01/28/18 19:20 Lab Statement: Any lab studies that have been ordered have been reviewed, and results considered in the medical decision making process. Disposition - Course Course Of Treatment: Patient complains of SOB 2 days, worse this afternoon, cough 1 week. Denies fever, sore throat, HOLCOMB, neck stiffness, CP, N/V/D, abdominal pain, change in urine, change in BM. Medical history is chronic back pain, emphysema. No home O2. No inhaler. Smoker for 25 years, quit 10 years ago. Denies prior cardiac history. Physical exam:Mild expiratory wheezing bilaterally. Physical exam otherwise unremarkable. Patient lying flat on bed with one pillow, no evidence of orthopnea. No peripheral edema. Patient presented with EMS on 2 L. Patient taken off 2 L with subsequent normal vital signs. Elevated white count 11.1. Lactic normal. EKG unremarkable and similar to prior. Elevated BNP 119, mildly elevated from prior. Chest x-ray unremarkable and similar to prior. Solu-Medrol 125 mg. DuoNeb 3. Likely COPD exacerbation. Rx for prednisone by mouth and Levaquin due to productive cough. MDI inhaler sent home with patient - Diagnoses Provider Diagnoses: COPD exacerbation Discharge - Sign-Out/Discharge Documenting (check all that apply): Patient Departure - Discharge Plan Condition: Stable Disposition: HOME Prescriptions: Levofloxacin TAB* [Levaquin TAB*] 750 mg PO DAILY 7 Days #7 tab predniSONE TAB* [Deltasone 20 MG TAB*] 40 mg PO DAILY 5 Days #10 tab Patient Education Materials: Emphysema (ED), COPD (Chronic Obstructive Pulmonary Disease) (ED) Referrals: Deanne Babb MD [Primary Care Provider] - Additional Instructions: Take antibiotics as directed. Use inhaler as directed. Follow-up with primary care. Return to the ED for any new or worsening symptoms - Billing Disposition and Condition Condition: STABLE Disposition: Home
[2018-01-29] MEDS ORDERED: Albuterol HFA INHALER* 8 gm MDI INH ONE (01:48)
[2018-01-29 02:09] VITALS: BP 148/81
== END 2018-01-29 01:45 | disposition home or self-care (01) ==
LOC: ED 18:17
DX: J44.1 Chronic obstructive pulmonary disease with (acute) exacerbation (principal); F41.0 Panic disorder [episodic paroxysmal anxiety]; Z88.1 Allergy status to other antibiotic agents; Z88.0 Allergy status to penicillin; Z87.891 Personal history of nicotine dependence
CPT/HCPCS: 36415; 71045; 80053; 81003; 82803; 83605; 83880; 84484; 85025; 86140; 93005; 96374; 99282; A9270-GY; J2930

== ENCOUNTER 2023-03-12 12:33 | Inpatient (IN) ==
[2023-03-12] MEDS ORDERED: Morphine 4 MG/ML VIAL (1 ml) IV ONE ×2 (13:32→17:02)
[2023-03-12] MEDS ORDERED: Ondansetron 4 mg VIAL 2 MG/ML 2 ml VIAL IV ONE (13:32)
[2023-03-12 14:33] LABS: Urine Appearance Cloudy; Urine Bilirubin Negative (Negative); Urine Blood Negative (Negative); Urine Color Yellow; Urine Glucose Negative (Negative); Urine Ketones Negative (Negative); Urine Nitrite Negative (Negative); Urine Protein Negative (Negative); Urine Specific Gravity 1.024 (1.002-1.030); Urine Urobilinogen Negative (Negative)
[2023-03-12 14:49] LABS: ALT 10 U/L (7-52); Albumin 4.2 g/dL (3.2-5.2); Albumin/Globulin Ratio 0.9 (1-3); Alkaline Phosphatase 78 U/L (35-149); Anion Gap 6 mmol/L (2-16); Blood Urea Nitrogen 28 mg/dL (6-24); C Reactive Protein 8.92 mg/L (<8.01); CO2 Carbon Dioxide 31 mmol/L (22-32); Calcium 10.1 mg/dL (8.6-10.3); Chloride 102 mmol/L (101-111); Creatinine, Serum 0.71 mg/dL (0.67-1.17); Globulin 4.5 g/dL (2-4); Glucose 111 mg/dL (70-100); Lipase 41 U/L (11.0-82.0); Sodium 139 mmol/L (135-145); Total Bilirubin 0.4 mg/dL (0.2-1.0); Total Protein 8.7 g/dL (6.4-8.9); eGFR CKD-EPI 100.6 (>60)
[2023-03-12 14:50] LABS: High Sens Troponin Baseline 113 pg/mL (<20)
[2023-03-12 15:44] LABS: ABS Basophils 0.7 10^3/uL (0.0-0.1); ABS Eosinophils 0.2 10^3/uL (0.0-0.5); ABS Lymphocytes 2.3 10^3/uL (1.0-4.8); ABS Monocytes 1.4 10^3/uL (0.0-1.1); ABS Neutrophils 16.3 10^3/uL (1.5-7.6); ABS Nucleated RBC 0.03 10^3/ul; Eosinophil % 0.7 %; Hematocrit 48.7 % (38-53); Lymphocyte % 10.9 %; Mean Corpuscular Hemoglobin 30.3 pg (27-33); Mean Corpuscular Hgb Conc 32.9 g/dL (31-36); Nucleated Red Blood Cells % 0.2 %/100WBC (0.0-0.8); Platelet Count 220 10^3/uL (150-450); Red Blood Count 5.29 10^6/uL (4.06-5.63); Red Cell Distribution Width 15.3 % (12-17); White Blood Count 20.9 10^3/uL (3.6-10.2)
[2023-03-12] MEDS ORDERED: Iohexol 350 (CONTRAST) 500 ML MDV IV ONE (15:53)
[2023-03-12 15:56] LABS: High Sensitivity Troponin 1 Hr 368 pg/mL (<20)
[2023-03-12 17:33] LABS: Potassium Redraw 4.6 mmol/L (3.5-5.0)
[2023-03-12 18:46] LABS: High Sensitivity Troponin 3 Hr 764 pg/mL (<20)
[2023-03-12] MEDS ORDERED: Polyethylene Glycol 3350 17 GM PACKET PO PRN (19:46)
[2023-03-12] MEDS ORDERED: metroNIDAZOLE IV 500 MG/100ML 500 MG/100 ML BAG IVPB SCH ×2 (21:00→22:00)
[2023-03-12] MEDS ORDERED: Heparin 5000 UNITS/ML 1 mL VIAL IV SCH (21:00)
[2023-03-12] MEDS ORDERED: cefTRIAXone 1 gm/50 mL D5W 1 GM/50 ML BAG IV SCH ×2 (21:00→22:00)
[2023-03-12 21:10] LABS: Hematocrit 43.6 % (38-53); Hemoglobin 14.8 g/dL (13.2-16.3); Mean Corpuscular Hgb Conc 33.9 g/dL (31-36); Mean Corpuscular Volume 91.2 fL (80-97); Mean Platelet Volume 9.5 fL (7.5-11.2); Platelet Count 185 10^3/uL (150-450); Red Blood Count 4.78 10^6/uL (4.06-5.63); Red Cell Distribution Width 15.1 % (12-17)
[2023-03-12] MEDS: Heparin DRIP 25,000 UNITS BAG 25,000 UNITS/250 ML BAG IV SCH (21:23)
[2023-03-12 21:27] LABS: Creatinine, Serum 0.67 mg/dL (0.67-1.17); eGFR CKD-EPI 102.3 (>60)
[2023-03-12 21:30] LABS: ABS Basophils 0.4 10^3/uL (0.0-0.1); ABS Eosinophils 0.1 10^3/uL (0.0-0.5); ABS Lymphocytes 2.2 10^3/uL (1.0-4.8); ABS Monocytes 1.5 10^3/uL (0.0-1.1); ABS Neutrophils 13.8 10^3/uL (1.5-7.6); ABS Nucleated RBC 0.01 10^3/ul; Eosinophil % 0.5 %; Lymphocyte % 12.4 %; RBC Morphology Normal (Normal)
[2023-03-12] MEDS ORDERED: Metoprolol Tartrate 5 mg VIAL 5 ml VIAL (1 mg/ml) IV ONE (21:34)
[2023-03-12] MEDS: Morphine 2 MG/ML SYRINGE IV PRN (21:59)
[2023-03-13] MEDS: cefTRIAXone 1 gm/50 mL D5W 1 GM/50 ML BAG IV SCH ×2 (00:10→23:49)
[2023-03-13] MEDS: Morphine 2 MG/ML SYRINGE IV PRN ×4 (00:45→23:49)
[2023-03-13] MEDS: metroNIDAZOLE IV 500 MG/100ML 500 MG/100 ML BAG IVPB SCH ×3 (00:47→17:48)
[2023-03-13 03:46] LABS: ABS Basophils 0.1 10^3/uL (0.0-0.1); ABS Eosinophils 0.2 10^3/uL (0.0-0.5); ABS Lymphocytes 2.2 10^3/uL (1.0-4.8); ABS Monocytes 1.5 10^3/uL (0.0-1.1); ABS Neutrophils 9.3 10^3/uL (1.5-7.6); Eosinophil % 1.5 %; Hematocrit 42.4 % (38-53); Lymphocyte % 16.5 %; Mean Corpuscular Hemoglobin 30.3 pg (27-33); Mean Corpuscular Hgb Conc 33.1 g/dL (31-36); Mean Corpuscular Volume 91.4 fL (80-97); Mean Platelet Volume 9.8 fL (7.5-11.2); Platelet Count 165 10^3/uL (150-450); Red Blood Count 4.63 10^6/uL (4.06-5.63); Red Cell Distribution Width 15.4 % (12-17); White Blood Count 13.1 10^3/uL (3.6-10.2)
[2023-03-13 03:59] LABS: HDL Cholesterol 41.2 mg/dL
[2023-03-13] MEDS ORDERED: Nitroglycerin 0.6 mg TAB SL ONE (08:48)
[2023-03-13] MEDS ORDERED: Lactated Ringers 1000 ml BAG 1,000 ML IV SCH (09:00)
[2023-03-13] MEDS ORDERED: Sulfur Hexaflouride MICROSPHR 25 MG VIAL ONE (09:22)
[2023-03-13 10:14] LABS: Calcium 9.1 mg/dL (8.6-10.3); Creatinine, Serum 0.64 mg/dL (0.67-1.17); Potassium 4.2 mmol/L (3.5-5.0); eGFR CKD-EPI 103.8 (>60)
[2023-03-13 11:31] LABS: High Sensitivity Troponin 1 Hr 342 pg/mL (<20)
[2023-03-13] MEDS ORDERED: Iohexol 350 (CONTRAST) 500 ML MDV IV ONE (12:46)
[2023-03-13] MEDS: Heparin DRIP 25,000 UNITS BAG 25,000 UNITS/250 ML BAG IV SCH (17:00)
[2023-03-14] MEDS: metroNIDAZOLE IV 500 MG/100ML 500 MG/100 ML BAG IVPB SCH ×2 (00:24→12:05)
[2023-03-14 06:12] LABS: ABS Basophils 0.2 10^3/uL (0.0-0.1); ABS Eosinophils 0.4 10^3/uL (0.0-0.5); ABS Lymphocytes 1.6 10^3/uL (1.0-4.8); ABS Neutrophils 7.3 10^3/uL (1.5-7.6); ABS Nucleated RBC 0.01 10^3/ul; Eosinophil % 3.5 %; Hematocrit 38.8 % (38-53); Hemoglobin 13.1 g/dL (13.2-16.3); Lymphocyte % 15.4 %; Mean Corpuscular Hemoglobin 30.6 pg (27-33); Mean Corpuscular Hgb Conc 33.6 g/dL (31-36); Mean Corpuscular Volume 91.1 fL (80-97); Mean Platelet Volume 9.5 fL (7.5-11.2); Nucleated Red Blood Cells % 0.1 %/100WBC (0.0-0.8); Platelet Count 147 10^3/uL (150-450); Red Blood Count 4.26 10^6/uL (4.06-5.63); Red Cell Distribution Width 14.5 % (12-17); White Blood Count 10.5 10^3/uL (3.6-10.2)
[2023-03-14 06:34] LABS: Albumin 3.3 g/dL (3.2-5.2); Albumin/Globulin Ratio 0.9 (1-3); Calcium 8.6 mg/dL (8.6-10.3); Creatinine, Serum 0.54 mg/dL (0.67-1.17); Globulin 3.6 g/dL (2-4); Phosphorus 3.4 mg/dL (2.5-5.0); Total Bilirubin 0.5 mg/dL (0.2-1.0); Total Protein 6.9 g/dL (6.4-8.9); eGFR CKD-EPI 109.2 (>60)
[2023-03-14] MEDS ORDERED: Lactated Ringers 1000 ml BAG 1,000 ML IV SCH (08:00)
[2023-03-14] MEDS ORDERED: VERAPAMIL 2.5 MG/ML 2 ML VIAL ** 5 mg/2 ml ONE (08:07)
[2023-03-14] MEDS ORDERED: nitroGLYCERIN DRIP 25,000 MCG/250 ML BTL ONE (08:07)
[2023-03-14] MEDS ORDERED: Lidocaine 1% MPF 5 ML VIAL ONE (08:07)
[2023-03-14] MEDS ORDERED: Heparin 1,000 UNIT/ML 10 ml (10,000 UNITS) CATHLAB/DIALYSIS ONE (08:07)
[2023-03-14] MEDS ORDERED: Iohexol 350 (CONTRAST) 200 ML MDV IV ONE (08:07)
[2023-03-14] MEDS ORDERED: Heparin 2 UNITS/ML 1000 mls 3,000 ML IV ONE (08:07)
[2023-03-14] MEDS ORDERED: fentaNYL 100 mcg/2 ml 50 MCG/ML VIAL ONE (08:08)
[2023-03-14] MEDS ORDERED: Midazolam 5 mg/5 ml VIAL 1 mg/ml 5 ml VIAL (5 mg) ONE (08:08)
[2023-03-14] MEDS ORDERED: niCARdipine 0.1MG/ML IVPREMIX 20 MG/200 ML BAG IV ONE (08:08)
[2023-03-14] MEDS ORDERED: Midazolam 10 mg/10 ml VIAL 1 mg/ml 10 ml VIAL (10 mg) IV SLOW PU ONE (08:12)
[2023-03-14] MEDS ORDERED: fentaNYL 100 mcg/2 ml 50 MCG/ML VIAL IV SLOW PU ONE (08:12)
[2023-03-14] MEDS ORDERED: Flumazenil 0.5 mg/5 ml 0.1 MG/ML 5 ml VIAL IV PRN (08:12)
[2023-03-14] MEDS ORDERED: Naloxone 0.4 mg VIAL 0.4 mg/ml 1 ml VIAL IV PUSH PRN (08:12)
[2023-03-14] MEDS: Morphine 2 MG/ML SYRINGE IV PRN ×2 (12:05→17:50)
[2023-03-14] MEDS: Magnesium Hydroxide LIQ 30 ML UDC PO SCH ×2 (13:17→20:36)
[2023-03-14] MEDS: Senna TAB 8.6 mg TAB PO SCH (20:36)
[2023-03-15] MEDS: cefTRIAXone 1 gm/50 mL D5W 1 GM/50 ML BAG IV SCH (00:48)
[2023-03-15 06:21] LABS: ABS Basophils 0.1 10^3/uL (0.0-0.1); ABS Eosinophils 0.4 10^3/uL (0.0-0.5); ABS Lymphocytes 1.4 10^3/uL (1.0-4.8); ABS Neutrophils 7.9 10^3/uL (1.5-7.6); Eosinophil % 3.5 %; Hemoglobin 13.1 g/dL (13.2-16.3); Mean Corpuscular Hemoglobin 30.8 pg (27-33); Mean Corpuscular Hgb Conc 33.6 g/dL (31-36); Mean Corpuscular Volume 91.5 fL (80-97); Mean Platelet Volume 9.9 fL (7.5-11.2); Platelet Count 173 10^3/uL (150-450); Red Blood Count 4.27 10^6/uL (4.06-5.63); Red Cell Distribution Width 14.6 % (12-17); White Blood Count 10.7 10^3/uL (3.6-10.2)
[2023-03-15 06:44] LABS: Albumin 3.4 g/dL (3.2-5.2); Albumin/Globulin Ratio 0.9 (1-3); Calcium 8.7 mg/dL (8.6-10.3); Creatinine, Serum 0.6 mg/dL (0.67-1.17); Globulin 3.7 g/dL (2-4); Magnesium 2.1 mg/dL (1.9-2.7); Phosphorus 3.1 mg/dL (2.5-5.0); Total Bilirubin 0.5 mg/dL (0.2-1.0); Total Protein 7.1 g/dL (6.4-8.9); eGFR CKD-EPI 105.8 (>60)
[2023-03-15] MEDS: Morphine 2 MG/ML SYRINGE IV PRN (08:16)
[2023-03-15] MEDS: Magnesium Hydroxide LIQ 30 ML UDC PO SCH ×2 (08:27→20:38)
[2023-03-15] MEDS ORDERED: Pneumococcal Vac 23-Polyvalent IM ONE (09:00)
[2023-03-15] MEDS: Enoxaparin 40 MG/0.4 ML SYR SUBCUT SCH (16:53)
[2023-03-15] MEDS: Senna TAB 8.6 mg TAB PO SCH (20:38)
[2023-03-16] MEDS: cefTRIAXone 1 gm/50 mL D5W 1 GM/50 ML BAG IV SCH (00:33)
[2023-03-16] MEDS: Magnesium Hydroxide LIQ 30 ML UDC PO SCH (09:06)
[2023-03-16] MEDS ORDERED: Lidocaine PATCH 4% TOPICAL PRN (10:43)
[2023-03-16 11:31] LABS: ABS Basophils 0.1 10^3/uL (0.0-0.1); ABS Eosinophils 0.3 10^3/uL (0.0-0.5); ABS Lymphocytes 1.7 10^3/uL (1.0-4.8); ABS Neutrophils 7.8 10^3/uL (1.5-7.6); Eosinophil % 2.5 %; Hematocrit 40.1 % (38-53); Hemoglobin 13.5 g/dL (13.2-16.3); Lymphocyte % 15.8 %; Mean Corpuscular Hemoglobin 30.8 pg (27-33); Mean Corpuscular Hgb Conc 33.8 g/dL (31-36); Mean Corpuscular Volume 91.1 fL (80-97); Mean Platelet Volume 9.7 fL (7.5-11.2); Platelet Count 210 10^3/uL (150-450); Red Cell Distribution Width 14.7 % (12-17); White Blood Count 10.9 10^3/uL (3.6-10.2)
[2023-03-16 14:12] VITALS: BP 121/65
[2023-03-16] MEDS: Enoxaparin 40 MG/0.4 ML SYR SUBCUT SCH (16:45)
== END 2023-03-16 17:45 | disposition home or self-care (01) | DRG 280 ==
LOC: ED 12:33 → EDHOLD 12:33 → SUATTDRO 19:46 → MEDTELE 21:13
PROVIDERS: ADMIT Internal Medicine; ATTEND Internal Medicine